=== PATIENT | female | born 1985 | race Hispanic/Latino ===

== ENCOUNTER 2017-06-18 21:52 | Emergency (ER) | payer OTHER ==
[2017-06-18 22:31] LABS: Bilirubin Negative (Negative); Blood, Urine Small (Negative); Glucose, Urine (Dipstick) Negative (Negative); Ketone, Urine Negative (Negative); Nitrite Negative (Negative); Protein, Urine (Dipstick) Negative (Neg-Trace); Urobilinogen 0.2 mg/dL (0.2-1.0)
[2017-06-18 22:38] LABS: Bacteria/HPF None Seen HPF (None Seen); Hyaline Casts/LPF 0-3 HYALINE CAST LPF (0-3 Hyaline); Squamous Epithelial 0-3 HPF (0-3); WBC/HPF 0-3 HPF (0-3)
[2017-06-18 22:44] LABS: #Basophils 0.1 thou/uL (0.0-0.2); #Eosinphils 0.2 thou/uL (0.0-0.7); #Lymphocytes 4.6 thou/uL (1.20-3.40); #Monocytes 0.9 thou/uL (0.11-0.59); #Neutrophils 4.4 thou/uL (1.40-6.50); %Basophils 0.8 % (0.0-1.0); %Eosinophils 2.1 % (0.0-10.0); %Lymphocytes 45.2 % (21.0-51.0); %Monocytes 9.2 % (0.0-10.0); Hematocrit 39.5 % (36.0-47.0); Mean Platelet Volume 6.7 fL (7.4-10.4); Red Blood Cell (RBC) Count 4.21 mill/uL (4.20-5.40); White Blood Cell (WBC) Count 10.2 thou/uL (4.8-10.8)
[2017-06-18 23:07] LABS: ALT (SGPT) 23 U/L (8-55); AST (SGOT) 22 U/L (5-34); Alkaline Phosphatase 102 U/L (40-150); Anion Gap 15 mmol/L (10-20); BUN (Urea Nitrogen) 10 mg/dL (7.0-18.7); Bilirubin, Total Less than 0.2 mg/dL (0.2-1.2); Calc. Creatinine Clearance 0 mL/min (70-130); Calcium 9.4 mg/dL (7.8-10.44); Carbon Dioxide 26 mmol/L (22-29); Chloride 102 mmol/L (98-107); Estimated GFR-MDRD 84; Globulin 3.5 g/dL (2.4-3.5); Lipase 79 U/L (8-78); Protein, Total 7.5 g/dL (6.0-8.3)
[2017-06-19] MEDS ORDERED: Ondansetron HCl/PF 4 MG/2 ML Vial ONE (02:15)
--- NOTE | 2017-06-19 08:56 | ULT ---
PRELIMINARY REPORT/[facility]/EMERGENCY AFTER HOURS PROCEDURE: EXAM: US Abdomen Limited, Right Upper Quadrant CLINICAL HISTORY: 32 years old, female; Pain and signs and symptoms; Nausea; Abdominal pain; Localized; Right upper qu adrant (ruq); Patient HX: Ruq pain (on/off) x months, worse today TECHNIQUE: Real-time ultrasound of the right upper quadrant with image documentation. COMPARISON: No relevant prior studies available. FINDINGS: Liver: Liver demonstrates fatty infiltration without visible focal mass. No mass. No intrahepatic bi le duct dilation. Gallbladder: No acute findings. No gallstones. Contracted. Common bile duct: Unremarkable as visualized. 3 mm. No stones. No dilation. Pancreas: Obscured by bowel gas. Right kidney: No acute findings. No stones. No solid mass. No nae hydronephrosis. Mild renal pelvi c prominence. IMPRESSION: No visible gallstones or evidence for cholecystitis. Mild right renal pelvic dilation without nae hydronephrosis. Fatty liver. Thank you for allowing us to participate in the care of your patient. Dictated and Authenticated by: Jere Fox MD 06/19/2017 2:02 AM Central Time ([place] \T\ [place]) FINAL REPORT RIGHT UPPER QUADRANT ULTRASOUND: I agree with the preliminary report given by Dr. Jere Fox of [facility]. POS: OFF
== END 2017-06-19 03:29 | disposition home or self-care (01) ==
LOC: ERS 21:52
DX: K29.70 Gastritis, unspecified, without bleeding (principal); F31.9 Bipolar disorder, unspecified; F41.9 Anxiety disorder, unspecified; I10 Essential (primary) hypertension; F17.210 Nicotine dependence, cigarettes, uncomplicated; Z79.899 Other long term (current) drug therapy
CPT/HCPCS: 36415; 76705; 80053; 81003; 81015; 83690; 85025; 96361; 96374; 96375; J2270; J2405

== ENCOUNTER 2017-07-14 07:31 | Outpatient (CLI) | payer OTHER ==
--- NOTE | 2017-07-14 12:42 | NM ---
HEPATOBILIARY SCAN: HISTORY: Epigastric pain. TECHNIQUE: The patient is given 5.3 millicuries of technetium labeled mebrofenin IV. FINDINGS: Initial imaging shows normal liver activity. Bile duct activity is identified. The gallbladder beg ins to visualized by 8 minutes. Intestinal activity is documented. At 1 hour, the patient was given CCK slow IV. The gallbladder ejection fraction was recorded at 66% . IMPRESSION: 1. Normal visualization of the gallbladder. 2. Normal gallbladder ejection fraction. POS: [facility]
== END 2017-07-14 07:32 | disposition home or self-care (01) ==
LOC: NM 07:31
PROVIDERS: ATTEND Internal Medicine Gastroenterology
DX: B18.2 Chronic viral hepatitis C (principal); R10.13 Epigastric pain; R10.11 Right upper quadrant pain
CPT/HCPCS: 78227; A9537